=== PATIENT | male | born 1950 | race Caucasian/White ===

== ENCOUNTER 2017-04-07 20:47 | Emergency (ER) | payer MEDICARE ==
[2017-04-07] MEDS ORDERED: LORAZEPAM 1 MG TABLET PO ONE (21:13)
[2017-04-07 21:33] LABS: ALANINE AMINOTRANSFERASE 29 U/L (21-72); ALBUMIN 4.3 g/dL (3.5-5.0); ALKALINE PHOSPHATASE 129 U/L (38-126); ANION GAP 15 (5-19); ASPARTATE AMINO TRANSFERASE 29 U/L (17-59); BILIRUBIN,DIRECT 0.4 mg/dL (0.0-0.4); BILIRUBIN,TOTAL 1.3 mg/dL (0.2-1.3); BLOOD UREA NITROGEN 12 mg/dL (7-20); CALCIUM 9.2 mg/dL (8.4-10.2); CARBON DIOXIDE 27 mmol/L (22-30); CHLORIDE 98 mmol/L (98-107); CREATININE RESULT 1.04 mg/dL (0.52-1.25); GLUCOSE 62 mg/dL (75-110); POTASSIUM 3.3 mmol/L (3.6-5.0); SODIUM 139.7 mmol/L (137-145); TOTAL PROTEIN 8.5 g/dL (6.3-8.2)
[2017-04-07] MEDS ORDERED: POTASSIUM CHLORIDE 10 MEQ TABLET.SA PO ONE (21:45)
--- NOTE | 2017-04-07 22:04 | ER Document Report ---
ED Seizure - General Chief Complaint: Probable Seizure Stated Complaint: POSSIBLE SEIZURE Time Seen by Provider: 04/07/17 21:06 Notes: The patient is a 66-year-old male, past medical history seizures, recovering alcoholic, CHF, presents after an unwitnessed seizure at home. The patient remembers waking up confused, but denies loss of bowel or bladder. He is out of his Xanax for the past week and he says that is his only seizure medication. Patient also with 7 months of right lower leg pain. He has had multiple negative ultrasounds for DVT. Patient denies head injury, hallucinations, nausea , vomiting, fevers, - Related Data Allergies/Adverse Reactions: haloperidol [From Haldol] Allergy (Verified 10/17/16 11:05) venlafaxine [From Effexor] Allergy (Verified 10/17/16 11:05) beta beverly Allergy (Uncoded 10/17/16 11:05) Past Medical History - General Information source: Patient - Social History Smoking Status: Unknown if Ever Smoked Frequency of alcohol use: Recovering alcoholic Family History: Reviewed & Not Pertinent - Past Medical History Cardiac Medical History: Reports: Hx Congestive Heart Failure Pulmonary Medical History: Reports: Hx COPD Endocrine Medical History: Reports: Hx Diabetes Mellitus Type 2 Review of Systems - Review of Systems Notes: REVIEW OF SYSTEMS: CONSTITUTIONAL: -fevers, -chills EENT: -eye pain, -difficulty swallowing, -nasal congestion CARDIOVASCULAR:-chest pain, -syncope. RESPIRATORY: -cough, -SOB GASTROINTESTINAL: -abdominal pain, - nausea, -vomiting, -diarrhea GENITOURINARY: -dysuria, -hematuria MUSCULOSKELETAL: -back pain, -neck pain SKIN: -rash or skin lesions. HEMATOLOGIC: -easy bruising or bleeding. LYMPHATIC: -swollen, enlarged glands. NEUROLOGICAL: +seizure, -altered mental status or loss of consciousness, - headache, -neurologic symptoms PSYCHIATRIC: -anxiety, -depression. ALL OTHER SYSTEMS REVIEWED AND NEGATIVE. Physical Exam - Vital signs Vitals: Pulse Ox 96 04/07/17 20:53 - Notes Notes: PHYSICAL EXAMINATION: GENERAL: Well-appearing, well-nourished and in no acute distress. HEAD: Atraumatic, normocephalic. EYES: Pupils equal round and reactive to light, extraocular movements intact, sclera anicteric, conjunctiva are normal. ENT: nares patent, oropharynx clear without exudates. Moist mucous membranes. NECK: Normal range of motion, supple without lymphadenopathy LUNGS: Breath sounds clear to auscultation bilaterally and equal. No wheezes rales or rhonchi. HEART: Regular rate and rhythm without murmurs ABDOMEN: Soft, nontender, normoactive bowel sounds. No guarding, no rebound. No masses appreciated. EXTREMITIES: Chronic venous stasis changes of right barriga, normal range of motion , no pitting or edema. No cyanosis. NEUROLOGICAL: Cranial nerves grossly intact. Normal speech, normal gait. Normal sensory and motor exams. PSYCH: Normal mood, normal affect. SKIN: Warm, Dry, normal turgor, no rashes or lesions noted. Course - Re-evaluation Re-evalutation: Patient's recurrent seizure may be from missing his Xanax dose, although he is not displaying any other signs of benzo withdrawal at this time. His sugar was 62, improved after he ate. Instructed him to follow-up with his primary care physician and provided him with a neurologist for follow-up. Patient comfortable with plan. 04/07/17 23:33 Pt is requesting a refill of his Xanax dose for the next 3 days. He has an appointment with his PMD in 3 days. Looking through his drug database , pt last filled his Xanax script on 02/14/17. He takes 2 mg qid. Since this is a Sunday night and he has an appointment with his PMD in 3 days, this will be the only time that he was a short refill of his prescription until seen by his primary care physician and that this is an exception to the ER rule of not filling chronic Benzos. - Vital Signs Vital signs: Temp Pulse Resp BP Pulse Ox 97.7 F 17 120/85 92 04/07/17 23:31 04/07/17 23:31 04/07/17 23:31 04/07/17 23:31 - Laboratory Result Diagrams: 04/07/17 21:05 Laboratory results interpreted by me: 04/07/17 21:05 Potassium 3.3 L Glucose 62 L Alkaline Phosphatase 129 H Total Protein 8.5 H Discharge - Discharge Clinical Impression: Recurrent seizures Condition: Stable Disposition: HOME, SELF-CARE Additional Instructions: Seizure, Known Epileptic You have had a seizure. Seizures may "break through" in an epileptic due to stress of infection or injury, a change in blood chemistry, or drug and alcohol use. Another common cause is failure to take medication as prescribed. Your doctor has evaluated your situation for the likely cause of this seizure. It is important that you follow his advice concerning any medication changes and follow-up care. Further testing of anti-seizure medication levels in your blood may be necessary. If you have a p d driver's license, it's important that you DO NOT DRIVE until given permission by your physician. This seizure must be reported to the p d driver 's license bureau. Call the doctor or return if seizures recur, or if new or unusual symptoms arise -- such as severe headache, confusion, excessive sleepiness, local weakness or numbness, neck stiffness, or fever. Prescriptions: Alprazolam [Xanax] 2 mg PO QID 3 Days Referrals: ELMA FERREIRA MD [ACTIVE STAFF] - Follow up as needed
[2017-04-07 23:51] VITALS: BP 120/85
--- NOTE | 2017-04-08 13:10 | EKG REPORT ---
SEVERITY:- ABNORMAL ECG - SINUS TACHYCARDIA LEFT ANTERIOR FASCICULAR BLOCK BORDERLINE T ABNORMALITIES, ANTERIOR LEADS : Confirmed by: Naomi De La O MD 08-Apr-2017 13:09:34
== END 2017-04-07 23:51 | disposition home or self-care (01) ==
LOC: ER 20:47
DX: G40.909 Epilepsy, unspecified, not intractable, without status epilepticus (principal); F10.21 Alcohol dependence, in remission; M79.604 Pain in right leg; I50.9 Heart failure, unspecified
CPT/HCPCS: 99284; 36415; 80053; 93005; 93010; A9270 ×2